=== PATIENT | female | born 1985 | race Caucasian/White ===

== ENCOUNTER → 2017-02-03 | Outpatient (CLI) | payer MEDICAID ==
--- NOTE | 2017-02-03 14:28 | Diagnostic Imaging Report ---
Right breast ultrasound. INDICATION: Lump. FINDINGS: At 7:30 o'clock position 2 cm from the nipple, there is a simple cyst seen measuring 4 x 2 x 4 mm. The previously seen complicated cyst adjacent to it has resolved. IMPRESSION: Only remaining tiny simple cyst is seen at 7:30 o'clock position with benign features. No suspicious abnormality. ACR BI-RADS Category 2: Benign findings. Result letter will be mailed to the patient. Note: At least 10% of breast cancer is not imaged by mammography. Dictated by: Dictated on workstation # [id number]
== END ==
LOC: RAD 10:23
PROVIDERS: ATTEND Nurse Practitioner
DX: N60.01 Solitary cyst of right breast (principal)

== ENCOUNTER 2018-07-08 10:03 | Outpatient (CLI) | payer MEDICAID ==
[~2018-07-08] VITALS: Ht 157.5 cm; Wt 46.7 kg
[2018-07-08 10:15] VITALS: BP 117/81
[2018-07-08] MEDS ORDERED: METO-333 PO (10:36)
[2018-07-08 10:48] LABS: BASOPHILS % (AUTO) 0 % (0-10); EOSINOPHILS # (AUTO) 0.1 10^3/uL (0.0-0.3); EOSINOPHILS % (AUTO) 2 % (0-10); HEMATOCRIT 42 % (35-52); HEMOGLOBIN 14.9 G/DL (11.5-16.0); LYMPHOCYTES # (AUTO) 1.8 X 10^3 (1.0-4.0); LYMPHOCYTES % (AUTO) 29 % (12-44); MEAN CORPUSCULAR HEMOGLOBIN 31 PG (25-34); MEAN CORPUSCULAR HGB CONC 35 G/DL (32-36); MEAN CORPUSCULAR VOLUME 88 FL (80-99); MEAN PLATELET VOLUME 10.9 FL (7.4-10.4); MONOCYTES # (AUTO) 0.5 X 10^3 (0.0-1.0); MONOCYTES % (AUTO) 8 % (0-12); NEUTROPHILS # (AUTO) 3.8 X 10^3 (1.8-7.8); NEUTROPHILS % (AUTO) 60 % (42-75); PLATELET COUNT 225 10^3/uL (130-400); RED BLOOD COUNT 4.81 10^6/uL (4.35-5.85); RED CELL DISTRIBUTION WIDTH 13.3 % (10.0-14.5); WHITE BLOOD COUNT 6.3 10^3/uL (4.3-11.0)
[2018-07-08] MEDS ORDERED: CLON2TAB PO (12:01)
[2018-07-08] MEDS ORDERED: TRAZ-189 PO (12:01)
[2018-07-08] MEDS ORDERED: CYCL10TA9 PO (12:01)
[2018-07-08] MEDS ORDERED: LUTE6TAB PO (12:01)
[2018-07-08] MEDS ORDERED: TOPI50TA13 PO (12:01)
[2018-07-08] MEDS ORDERED: CITA40TA11 PO (12:01)
[2018-07-08] MEDS ORDERED: TOPI100T11 PO (12:01)
[2018-07-08] MEDS ORDERED: NF-SOLIF5T PO (12:01)
== END 2018-07-08 10:35 | disposition home or self-care (01) ==
LOC: PREOP 10:03
PROVIDERS: ATTEND Obstetrics & Gynecology
DX: Z01.812 Encounter for preprocedural laboratory examination (principal); Z11.2 Encounter for screening for other bacterial diseases; N92.0 Excessive and frequent menstruation with regular cycle; D64.9 Anemia, unspecified
CPT/HCPCS: 36415; 85025; 86850; 86900; 86901; 87081

== ENCOUNTER 2018-07-12 11:00 | Day surgery (SDC) | payer MEDICAID ==
[~2018-07-12] VITALS: Ht 157.5 cm; Wt 46.7 kg
[~2018-07-12 11:00] MED LIST: CITA40TA11 PO; CLON2TAB PO; CYCL10TA9 PO; LUTE6TAB PO; METO-333 PO; NF-SOLIF5T PO; TOPI100T11 PO; TOPI50TA13 PO; TRAZ-189 PO
--- OUTSIDE RECORDS SUMMARY | 2018-07-12 11:07 | XMS REPORT ---
Author Author BETTE DUFF [facility] Address [address] [place] [address] Care Team Providers Care Color Maker Name Role Phone BETTE DUFF Unavailable PROBLEMS Type Condition ICD9-CM Code JUY86-OY Code Onset Dates Condition Status SNOMED Code Problem Generalized anxiety disorder F41.1 Active 57920441 Problem Depressive disorder, not elsewhere classified F32.9 Active 82647380 Assessment Generalized anxiety disorder F41.1 Jun, Active 55906583 ALLERGIES Unknown Allergies SOCIAL HISTORY No smoking Hx information available PLAN OF CARE VITAL SIGNS MEDICATIONS Unknown Medications RESULTS No Results PROCEDURES Procedure Date Ordered Related Diagnosis Body Site Psychotherapy, patient &/family, 45 minutes, established patient Jul 23, 2016 IMMUNIZATIONS No Known Immunizations
--- OUTSIDE RECORDS SUMMARY | 2018-07-12 11:07 | XMS REPORT ---
Author Author BETTE DUFF [facility] eClinicalWorks Address Unknown Phone Unavailable Care Team Providers Care Speech Language Specialist Name Role Phone BETTE DUFF Unavailable Allergies No Known Allergies Problems Problem Type Condition Code Onset Dates Condition Status Problem Depressive disorder, not elsewhere classified F32.9 Active Assessment Generalized anxiety disorder F41.1 Active Problem Generalized anxiety disorder F41.1 Active Assessment Depressive disorder, not elsewhere classified F32.9 Active Medications No Known Medications Procedures Procedure Coding System Code Date Psychotherapy, patient &/family, 45 minutes, established patient CPT-4 42919 Aug 13, 2016 Results No Known Results Summary Purpose eClinicalWorks Submission
--- OUTSIDE RECORDS SUMMARY | 2018-07-12 11:07 | XMS REPORT ---
Author Author VON DUGGAN Organization [facility] Address [address] [place] [address] Care Team Providers Care Gis Programmer Name Role Phone VON DUGGAN Unavailable PROBLEMS Type Condition ICD9-CM Code HIA33-DP Code Onset Dates Condition Status SNOMED Code Problem Abnormal bleeding in menstrual cycle N93.9 Active 69265412025248 Problem Generalized anxiety disorder F41.1 Active 86645088 Problem Acute vaginitis N76.0 Active 707197146 Problem Adenomyoma D36.9 Active 45391487 Problem Depressive disorder, not elsewhere classified F32.9 Active 96921569 Problem Streptococcal infection, unspecified site A49.1 Active 05070686 ALLERGIES No Information ENCOUNTERS Encounter Location Date Diagnosis [facility] [address] [id number] [place] [address] Dec [facility] [address] [id number] [place] [address] Dec [facility]ITALEdictiveMichelle [address] [id number] [place] [address] Dec Abnormal bleeding in menstrual cycle N93.9 [facility]ITALEdictiveMichelle [address] [address] Nov [facility]ITALReapplixTOBIAS Osman65100KS [place] [address] Nov Well woman exam with routine gynecological exam Z01.419 and Breast tenderness in female N64.4 [facility]ITALEdictiveMichelle [address] [address] Oct Abnormal bleeding in menstrual cycle N93.9 [facility]ITALEdictiveMichelle [address] [id number] [place] [address] Sep Abnormal bleeding in menstrual cycle N93.9 and Encounter for Depo- Provera contraception Z30.[address] [facility] [address] [id number] [place] [address] Jun Encounter for immunization Z23 [place] [id number] [place] [address] 19 Jul, 2016 Generalized anxiety disorder F41.1 and Depressive disorder, not elsewhere classified F32.9 [place] [address] [place] [address] 05 Jul, 2016 Generalized anxiety disorder F41.1 and Depressive disorder, not elsewhere classified F32.9 [place] [id number] [place] [address] 28 Jun, 2016 Generalized anxiety disorder F41.1 and Depressive disorder, not elsewhere classified F32.9 [place] [address] [place] [address] 20 Jun, 2016 Generalized anxiety disorder F41.1 and Depressive disorder, not elsewhere classified F32.9 [place] [address] [place] [address] 14 Jun, 2016 Generalized anxiety disorder F41.1 and Depressive disorder, not elsewhere classified F32.9 [place] [address] [place] [address] 06 Jun, 2016 Generalized anxiety disorder F41.1 and Depressive disorder, not elsewhere classified F32.9 IMMUNIZATIONS No Known Immunizations SOCIAL HISTORY Never Assessed REASON FOR VISIT PLAN OF CARE VITAL SIGNS MEDICATIONS Unknown Medications RESULTS No Results PROCEDURES No Known procedures INSTRUCTIONS MEDICATIONS ADMINISTERED No Known Medications MEDICAL (GENERAL) HISTORY Type Description Date Medical History Severe Chronic Migraines Medical History Depression Medical History anxiety Medical History mitral valve prolapse Medical History TMJ Surgical History appendectomy 04/2013 Surgical History tubal ligation 02/2013 Hospitalization History childbirth 2012
--- OUTSIDE RECORDS SUMMARY | 2018-07-12 11:07 | XMS REPORT ---
Author Author VON DUGGAN [facility] Address [address] [place] [address] Care Team Providers Care Stoker Installation Mechanic Name Role Phone VON DUGGAN Unavailable PROBLEMS Type Condition ICD9-CM Code DXI69-CS Code Onset Dates Condition Status SNOMED Code Problem Abnormal bleeding in menstrual cycle N93.9 Active 63903231013909 Problem Generalized anxiety disorder F41.1 Active 62440461 Problem Acute vaginitis N76.0 Active 153219673 Problem Adenomyoma D36.9 Active 37159558 Problem Depressive disorder, not elsewhere classified F32.9 Active 50679507 Problem Streptococcal infection, unspecified site A49.1 Active 13995643 ALLERGIES No Information ENCOUNTERS Encounter Location Date Diagnosis [facility] [address] [id number] [place] [address] Dec [facility] [address] [id number] [place] [address] Dec [facility]pl[facility] [address] [id number] [place] [address] Dec Abnormal bleeding in menstrual cycle N93.9 [facility]pl[facility] [address] [address] Nov [facility]TO[facility] [address] [place] [address] Nov Well woman exam with routine gynecological exam Z01.419 and Breast tenderness in female N64.4 [facility]ALSplotherMichelle [address] [address] Oct Abnormal bleeding in menstrual cycle N93.9 [facility]plother[facility] [address] [id number] [place] [address] Sep Abnormal bleeding in menstrual cycle N93.9 and Encounter for Depo- Provera contraception Z30.42 [facility] [address] [id number] [place] [address] Jun Encounter for immunization Z23 [place] [address] [place] [address] 19 Jul, 2016 Generalized anxiety disorder F41.1 and Depressive disorder, not elsewhere classified F32.9 [place] [address] [place] [address] 05 Jul, 2016 Generalized anxiety disorder F41.1 and Depressive disorder, not elsewhere classified F32.9 [place] [address] [place] [address] 28 Jun, 2016 Generalized anxiety disorder F41.1 and Depressive disorder, not elsewhere classified F32.9 [place] [address]005[address], [place] [address] 20 Jun, 2016 Generalized anxiety disorder F41.1 and Depressive disorder, not elsewhere classified F32.9 [place] [address]100[place], [place] [address] 14 Jun, 2016 Generalized anxiety disorder F41.1 and Depressive disorder, not elsewhere classified F32.9 [place] [address], [place] [address] 06 Jun, 2016 Generalized anxiety disorder F41.1 and Depressive disorder, not elsewhere classified F32.9 IMMUNIZATIONS No Known Immunizations SOCIAL HISTORY Never Assessed REASON FOR VISIT Requests return call PLAN OF CARE VITAL SIGNS MEDICATIONS Medication Instructions Dosage Frequency Start Date End Date Duration Status Diflucan 150 MG Orally may take now and repeat in 3 days if needed 1 tablet Dec, 2 days Active RESULTS No Results PROCEDURES No Known procedures INSTRUCTIONS MEDICATIONS ADMINISTERED No Known Medications MEDICAL (GENERAL) HISTORY Type Description Date Medical History Severe Chronic Migraines Medical History Depression Medical History anxiety Medical History mitral valve prolapse Medical History TMJ Surgical History appendectomy 04/2013 Surgical History tubal ligation 02/2013 Hospitalization History childbirth 2012
--- OUTSIDE RECORDS SUMMARY | 2018-07-12 11:07 | XMS REPORT ---
Author Author VON DUGGAN Organization [facility] Address [address] [address] Care Team Providers Care Printing Shop Supervisor Name Role Phone VON DUGGAN Unavailable PROBLEMS Type Condition ICD9-CM Code DBZ80-ZZ Code Onset Dates Condition Status SNOMED Code Problem Abnormal bleeding in menstrual cycle N93.9 Active 96900629216568 Problem Generalized anxiety disorder F41.1 Active 32201463 Problem Acute vaginitis N76.0 Active 993013551 Problem Adenomyoma D36.9 Active 61922738 Problem Depressive disorder, not elsewhere classified F32.9 Active 47766654 Problem Streptococcal infection, unspecified site A49.1 Active 77587079 ALLERGIES No Information ENCOUNTERS Encounter Location Date Diagnosis [facility] [address] [id number] [place] [address] Dec [facility]X1 TechnologiesTOBIAS [address] [id number] [place] [address] Dec [facility]ITALGoodmail SystemsMichelle [address] [id number] [place] [address] Dec Abnormal bleeding in menstrual cycle N93.9 [facility]ITALGoodmail SystemsMichelle [address] [address] Nov [facility]X1 TechnologiesTOBIAS Osman65100[address] [place] [address] Nov Well woman exam with routine gynecological exam Z01.419 and Breast tenderness in female N64.4 [facility]ITALGoodmail SystemsMichelle [address] [address] Oct Abnormal bleeding in menstrual cycle N93.9 [facility]ITALGoodmail SystemsMichelle [address] COMMER[address]av[address] [id number] [place] [address] Sep Abnormal bleeding in menstrual cycle N93.9 and Encounter for Depo- Provera contraception Z30.42 [facility] [address] [id number] [place] [address] Jun Encounter for immunization Z23 [place] [id number] [place] [address] 19 Jul, 2016 Generalized anxiety disorder F41.1 and Depressive disorder, not elsewhere classified F32.9 [place] [address] [place] [address]40- 2672 05 Jul, 2016 Generalized anxiety disorder F41.1 and Depressive disorder, not elsewhere classified F32.9 [place] [id number] [place] [address] 67926- 9065 28 Jun, 2016 Generalized anxiety disorder F41.1 and Depressive disorder, not elsewhere classified F32.9 [place] [address] [place] [address] 17272- 3583 20 Jun, 2016 Generalized anxiety disorder F41.1 and Depressive disorder, not elsewhere classified F32.9 [place] [address] [place] [address] 66463- 4175 14 Jun, 2016 Generalized anxiety disorder F41.1 and Depressive disorder, not elsewhere classified F32.9 [place] [address] [place] [address] 51880- 8402 06 Jun, 2016 Generalized anxiety disorder F41.1 [...]
--- OUTSIDE RECORDS SUMMARY | 2018-07-12 11:07 | XMS REPORT ---
Author Author BETTE DUFF [facility] Address [address] [place] [address] Care Team Providers Care Field Identification Specialist Name Role Phone BETTE DUFF Unavailable PROBLEMS Type Condition ICD9-CM Code CUA02-UD Code Onset Dates Condition Status SNOMED Code Problem Generalized anxiety disorder F41.1 Active 05954206 Problem Depressive disorder, not elsewhere classified F32.9 Active 75892243 Assessment Generalized anxiety disorder F41.1 Jun, Active 08556853 ALLERGIES Unknown Allergies SOCIAL HISTORY No smoking Hx information available PLAN OF CARE VITAL SIGNS MEDICATIONS Unknown Medications RESULTS No Results PROCEDURES Procedure Date Ordered Related Diagnosis Body Site Psych diagnostic evaluation, new patient Jul 01, 2016 IMMUNIZATIONS No Known Immunizations
--- OUTSIDE RECORDS SUMMARY | 2018-07-12 11:07 | XMS REPORT ---
Author Author KEITH LUNA [facility] Address [address] [place] [address] Care Team Providers Care Fishing Lure Assembler Name Role Phone KEITH LUNA Unavailable PROBLEMS Type Condition ICD9-CM Code URU58-FQ Code Onset Dates Condition Status SNOMED Code Problem Abnormal bleeding in menstrual cycle N93.9 Active 44935434762529 Problem Generalized anxiety disorder F41.1 Active 05587832 Problem Acute vaginitis N76.0 Active 629613970 Problem Adenomyoma D36.9 Active 37558433 Problem Depressive disorder, not elsewhere classified F32.9 Active 93255157 Problem Streptococcal infection, unspecified site A49.1 Active 02208671 ALLERGIES No Information ENCOUNTERS Encounter Location Date Diagnosis [facility] [address] [id number] [place] [address] Dec [facility] [address] [id number] [place] [address] Dec [facility]ENTERPlixTOBIAS [address] [id number] [place] [address] Dec Abnormal bleeding in menstrual cycle N93.9 [facility]ENTERPlixTOBIAS [address]100[place] [address] Nov [facility] [address] [id number] [place] [address] Nov Well woman exam with routine gynecological exam Z01.419 and Breast tenderness in female N64.4 [facility]ENTERPlixTOBIAS [address] [address] Oct Abnormal bleeding in menstrual cycle N93.9 [facility]ENTERPlixTOBIAS [address] [id number] [place] [address] Sep Abnormal bleeding in menstrual cycle N93.9 and Encounter for Depo- Provera contraception Z30.42 [facility] [address] [id number] [place] [address] 22 Jun Encounter for immunization Z23 [place] [address]005[address] [address] 19 Jul, 2016 Generalized anxiety disorder F41.1 and Depressive disorder, not elsewhere classified F32.9 [place] [address]100[place] [address] 05 Jul, 2016 Generalized anxiety disorder F41.1 and Depressive disorder, not elsewhere classified F32.9 [place] [address] [address] 28 Jun, 2016 Generalized anxiety disorder F41.1 and Depressive disorder, not elsewhere classified F32.9 [place] [address]005[address] [address] 20 Jun, 2016 Generalized anxiety disorder F41.1 and Depressive disorder, not elsewhere classified F32.9 [place] [address]005[address] [address] 14 Jun, 2016 Generalized anxiety disorder F41.1 and Depressive disorder, not elsewhere classified F32.9 [place] [address] [address] 06 Jun, 2016 Generalized anxiety disorder F41.1 and Depressive disorder, not elsewhere classified F32.9 IMMUNIZATIONS Vaccine Route Administration Date Status FLUARIX QUAD (3 AND UP) 2017 IM Intramuscular Jul 17, 2017 Administered SOCIAL HISTORY Never Assessed REASON FOR VISIT Flu shot PLAN OF CARE VITAL SIGNS MEDICATIONS Unknown Medications RESULTS No Results PROCEDURES Procedure Date Ordered Result Body Site FLUARIX QUAD (3 & UP)-GSK-2015 Jul 17, 2017 SINGLE IMMUNIZATION ADMIN Jul 17, 2017 INSTRUCTIONS MEDICATIONS ADMINISTERED No Known Medications MEDICAL (GENERAL) HISTORY Type Description Date Medical History Severe Chronic Migraines Medical History Depression Medical History anxiety Medical History mitral valve prolapse Medical History TMJ Surgical History appendectomy 04/2013 Surgical History tubal ligation 02/2013 Hospitalization History childbirth 2012
--- OUTSIDE RECORDS SUMMARY | 2018-07-12 11:07 | XMS REPORT ---
Author Author BETTE DUFF [facility] Address [address] [place] [address] Care Team Providers Care Movie Shot Camera Operator Name Role Phone BETTE DUFF Unavailable PROBLEMS Type Condition ICD9-CM Code ISX16-DP Code Onset Dates Condition Status SNOMED Code Problem Generalized anxiety disorder F41.1 Active 18177982 Problem Depressive disorder, not elsewhere classified F32.9 Active 15383340 Assessment Generalized anxiety disorder F41.1 Jun, Active 33286675 ALLERGIES Unknown Allergies SOCIAL HISTORY No smoking Hx information available PLAN OF CARE VITAL SIGNS MEDICATIONS Unknown Medications RESULTS No Results PROCEDURES Procedure Date Ordered Related Diagnosis Body Site Psychotherapy, patient &/family, 30 minutes, established patient Jul 15, 2016 IMMUNIZATIONS No Known Immunizations
--- OUTSIDE RECORDS SUMMARY | 2018-07-12 11:07 | XMS REPORT ---
Author Author VON DUGGAN Organization [facility] NEAL Address [address] [place] [address] Care Team Providers Care Housekeeper/Laundry Assistant Name Role Phone VON DUGGAN Unavailable PROBLEMS Type Condition ICD9-CM Code HLJ50-VL Code Onset Dates Condition Status SNOMED Code Problem Abnormal bleeding in menstrual cycle N93.9 Active 90883460595922 Problem Generalized anxiety disorder F41.1 Active 74987076 Problem Acute vaginitis N76.0 Active 976432870 Problem Adenomyoma D36.9 Active 41286339 Problem Depressive disorder, not elsewhere classified F32.9 Active 41223507 Problem Streptococcal infection, unspecified site A49.1 Active 29751202 ALLERGIES Substance Reaction Event Type Date Status Atenolol rash Drug Allergy Oct, Active ENCOUNTERS Encounter Location Date Diagnosis [facility] [address] [id number] [place] [address] Dec [facility] [address] [id number] [place] [address] Dec [facility] [address] [id number] [place] [address] Dec Abnormal bleeding in menstrual cycle N93.9 [facility] [address] [id number] [place] [address] Nov [facility] [address] [id number] [place] [address] Nov Well woman exam with routine gynecological exam Z01.419 and Breast tenderness in female N64.4 [facility] [address] [id number] [place] [address] Oct Abnormal bleeding in menstrual cycle N93.9 [facility] ([facility] [address] [id number] [place] [address] Sep Abnormal bleeding in menstrual cycle N93.9 and Encounter for Depo- Provera contraception Z30.42 [facility] [id number] [place] [address] Jun Encounter for immunization Z23 [facility] [address]005[address]100[place], [place] [address] 19 Jul, 2016 Generalized anxiety disorder F41.1 and Depressive disorder, not elsewhere classified F32.9 [place] [address] [place] [address] 05 Jul, 2016 Generalized anxiety disorder F41.1 and Depressive disorder, not elsewhere classified F32.9 [place] [address] [place] [address] [place] [address] 28 Jun, 2016 Generalized anxiety disorder F41.1 and Depressive disorder, not elsewhere classified F32.9 [place] [address], [place] [address] 20 Jun, 2016 Generalized anxiety disorder F41.1 and Depressive disorder, not elsewhere classified F32.9 [place] [address], [place] [address] 14 Jun, 2016 Generalized anxiety disorder F41.1 and Depressive disorder, not elsewhere classified F32.9 [place] [address], [place] [address] 06 Jun, 2016 Generalized anxiety disorder F41.1 and Depressive disorder, not elsewhere classified F32.9 IMMUNIZATIONS No Known Immunizations SOCIAL HISTORY Never Assessed REASON FOR VISIT control kjizyw-[id number] up on depo got on 10/15 just stopped bleeding yesterday. Marc carroll PLAN OF CARE Activity Details Follow Up prn Reason:WWE VITAL SIGNS Height 5'2" in 2017-11-19 Weight 96.8 lbs 2017-11-19 Temperature 98.5 degrees Fahrenheit 2017-11-19 Heart Rate 78 bpm 2017-11-19 Respiratory Rate 18 2017-11-19 BMI 17.70 kg/m2 2017-11-19 Blood pressure systolic 110 mmHg 2017-11-19 Blood pressure diastolic 70 mmHg 2017-11-19 MEDICATIONS Medication Instructions Dosage Frequency Start Date End Date Duration Status Celexa 40 mg Orally Once a day 1 tablet 24h Active Lorazepam 1 MG Orally 4 times a day 1 tablet 6h Active Topamax 50 MG Orally Twice a day 1 tablet 12h Active Imitrex 100 MG Orally Twice a day 1 tablet as needed 12h Active Topamax 100 MG Orally Twice a day 1 tablet 12h Active Depo-Provera 150 MG/ML 1 ml Active Metoprolol Tartrate 25 MG Orally Twice a day 1 tablet with food 12h Active Cyclobenzaprine HCl 10 mg Orally at hs 1 tablet as needed Active Zofran ODT 4 MG Orally every 8 hrs 1 tablet on the tongue and allow to dissolve 8h Active RESULTS No Results PROCEDURES No Known procedures INSTRUCTIONS MEDICATIONS ADMINISTERED No Known Medications MEDICAL (GENERAL) HISTORY Type Description Date Medical History Severe Chronic Migraines Medical History Depression Medical History anxiety Medical History mitral valve prolapse Medical History TMJ Surgical History appendectomy 04/2013 Surgical History tubal ligation 02/2013 Hospitalization History childbirth 2012
--- OUTSIDE RECORDS SUMMARY | 2018-07-12 11:07 | XMS REPORT ---
Author Author BETTE DUFF [facility] eClinicalWorks Address Unknown Phone Unavailable Care Team Providers Care Spinning Room Worker Name Role Phone BETTE DUFF Unavailable Allergies [...] patient &/family, 45 minutes, established patient CPT-4 48267 Jul 30, 2016 Results No Known Results Summary Purpose eClinicalWorks Submission
--- OUTSIDE RECORDS SUMMARY | 2018-07-12 11:08 | XMS REPORT ---
Author Author VON DUGGAN Organization [facility] Address [address] [place] [address] Care Team Providers Care Concrete Buildings Assembler Name Role Phone VON DUGGAN Unavailable PROBLEMS Type Condition ICD9-CM Code [id number] Code Onset Dates Condition Status SNOMED Code Problem Abnormal bleeding in menstrual cycle N93.9 Active [id number] Problem Generalized anxiety disorder F41.1 Active 68458115 Problem Acute vaginitis N76.0 Active 038446107 Problem Adenomyoma D36.9 Active 96837389 Problem Depressive disorder, not elsewhere classified F32.9 Active 46938298 Problem Streptococcal infection, unspecified site A49.1 Active 70891231 ALLERGIES Substance Reaction Event Type Date Status Atenolol rash Drug Allergy Sep, Active ENCOUNTERS Encounter Location Date Diagnosis [facility] [address] [id number] [place] [address] [facility] [address] [id number] [place] [address] Dec [facility] [address] [id number] [place] [address] Dec Abnormal bleeding in menstrual cycle N93.9 [facility] [address] [id number] [place] [address] Nov [facility] [address] [id number] [place] [address] Nov Well woman exam with routine gynecological exam Z01.419 and Breast tenderness in female N64.4 [facility] [address] [id number] [place] [address] Oct Abnormal bleeding in menstrual cycle N93.9 [facility] [address] [id number] [place] [address] Sep Abnormal bleeding in menstrual cycle N93.9 and Encounter for Depo- Provera contraception Z30.[address] [facility] [address] [id number] [place] [address] Jun Encounter for immunization Z23 [facility] [address] [address] 19 Jul, 2016 Generalized anxiety disorder F41.1 and Depressive disorder, not elsewhere classified F32.9 [place] [address] [place] [address] 05 Jul, 2016 Generalized anxiety disorder F41.1 and Depressive disorder, not elsewhere classified F32.9 [place] [address] [place] [id number] [place] [address] 28 Jun, 2016 Generalized anxiety disorder F41.1 and Depressive disorder, not elsewhere classified F32.9 [place] [address], [place] [address] 20 Jun, 2016 Generalized anxiety disorder F41.1 and Depressive disorder, not elsewhere classified F32.9 [place] [address], [place] [address] 14 Jun, 2016 Generalized anxiety disorder F41.1 and Depressive disorder, not elsewhere classified F32.9 [place] [address] [address] 06 Jun, 2016 Generalized anxiety disorder F41.1 and Depressive disorder, not elsewhere classified F32.9 IMMUNIZATIONS Vaccine Route Administration Date Status DEPO PROVERA (150 MG/ML) IM Intramuscular Oct 15, 2017 Administered SOCIAL HISTORY Never Assessed REASON FOR VISIT control consult. abnormal periods. stephanie RN PLAN OF CARE Activity Details Follow Up 4 Weeks Reason:BC F/U VITAL SIGNS Height 5'2" in 2017-10-15 Weight 96.1 lbs 2017-10-15 Temperature 97.2 degrees Fahrenheit 2017-10-15 Heart Rate 74 bpm 2017-10-15 Respiratory Rate 18 2017-10-15 BMI 17.58 kg/m2 2017-10-15 Blood pressure systolic 110 mmHg 2017-10-15 Blood pressure diastolic 75 mmHg 2017-10-15 MEDICATIONS Medication Instructions Dosage Frequency Start Date End Date Duration Status Lorazepam 1 MG Orally 4 times a day 1 tablet 6h Active Celexa 40 mg Orally Once a day 1 tablet 24h Active Topamax 50 MG Orally Twice a day 1 tablet 12h Active Topamax 100 MG Orally Twice a day 1 tablet 12h Active Metoprolol Tartrate 25 MG Orally Twice a day 1 tablet with food 12h Active Imitrex 100 MG Orally Twice a day 1 tablet as needed 12h Active Zofran ODT 4 MG Orally every 8 hrs 1 tablet on the tongue and allow to dissolve 8h Active RESULTS No Results PROCEDURES Procedure Date Ordered Result Body Site THER/PROPH/DIAG INJ, SC/IM Oct 15, 2017 COMPREHEN METABOLIC PANEL Oct 15, 2017 URINE TEST Oct 15, 2017 VENIPUNCT, ROUTINE* Oct 15, 2017 DEPO PROVERA (150 MG/ML) Oct 15, 2017 ASSAY OF PROGESTERONE Oct 15, 2017 ASSAY OF ESTRADIOL Oct 15, 2017 GONADOTROPIN (FSH) Oct 15, 2017 GONADOTROPIN (LH) Oct 15, 2017 INSTRUCTIONS MEDICATIONS ADMINISTERED No Known Medications MEDICAL (GENERAL) HISTORY Type Description Date Medical History Severe Chronic Migraines Medical History Depression Medical History anxiety Medical History mitral valve prolapse Medical History TMJ Surgical History appendectomy 04/2013 Surgical History tubal ligation 02/2013 Hospitalization History childbirth 2012
[2018-07-12] MEDS: LACTATED RINGERS 1,000 ML IV PRN ×2 (11:15→13:44)
[2018-07-12] MEDS ORDERED: ceFAZolin 1 GM/NS 50 ML IVPB IV ONE ×2 (11:15)
[2018-07-12] MEDS ORDERED: ceFAZolin INJECTION 1,000 MG in NS (IVPB) 50 ML IV ONE (11:15)
[2018-07-12] MEDS ORDERED: ONDANSETRON 4 MG/2 ML (SDV) Z0FRAN ONE (12:02)
[2018-07-12] MEDS ORDERED: ROCURONIUM 10 MG/ML 5 ML SYRINGE IV ONE (12:02)
[2018-07-12] MEDS ORDERED: fentaNYL INJECTION 100 MCG/2 ML AMP ONE (12:02)
[2018-07-12] MEDS ORDERED: MIDAZOLAM 2 MG/2 ML (VERSED) VIAL ONE (12:02)
[2018-07-12] MEDS ORDERED: LIDOCAINE PF 2% 2 ML (XYLOCAINE) VIAL ONE ×2 (12:02→12:03)
[2018-07-12] MEDS ORDERED: proPOfol 200 MG/20 ML (DIPRIVAN) VIAL IV ONE (12:02)
[2018-07-12] MEDS ORDERED: SEVOFLURANE (ULTANE) 15 ML INHAL SOLN ONE ×6 (12:03→14:05)
[2018-07-12] MEDS ORDERED: BUP/EPI 0.5% 1:200,000 (SENSORCAINE) 30 ML VIAL ONE (12:13)
--- NOTE | 2018-07-12 12:38 | Progress Note-Pre Operative ---
Pre-Operative Progress Note H&P Reviewed The H&P was reviewed, patient examined and no changes noted. Date Seen by Provider: Jul 12, 2018 Time Seen by Provider: 12:37 Date H&P Reviewed: Jul 12, 2018 Time H&P Reviewed: 12:37 Pre-Operative Diagnosis: Dysfunctional uterine bleeding/menorrhagia/uterine prolapse CHASITY WEBSTER MD Jul 12, 2018 12:38 pm
--- NOTE | 2018-07-12 12:38 | Progress Note-Post Operative ---
Post-Operative Progess Note Surgeon (s)/Opthalmic Tech (s) Surgeon CHASITY WEBSTER MD Opthalmic Tech: Eliza Hill Pre-Operative Diagnosis Dysfunctional uterine bleeding/menorrhagia/uterine prolapse Post-Operative Diagnosis Same with endometriosis and with pathology pending Procedure & Operative Findings Date of Procedure 07/12/18 Procedure Performed/Findings Total laparoscopic hysterectomy with bilateral salpingectomy and left oophorectomy, destruction of endometriosis Anesthesia Type GETA Estimated Blood Loss Estimated blood loss (mL): Minimal Specimens/Packing Specimens Removed Uterus fallopian tubes left ovary Packing: None CHASITY WEBSTER MD Jul 12, 2018 12:38
[2018-07-12] MEDS ORDERED: OXYC1TAB87 PO (12:41)
[2018-07-12] MEDS ORDERED: DOCU100C37 PO (12:41)
[2018-07-12] MEDS ORDERED: IBUP-1780 PO (12:41)
--- NOTE | 2018-07-12 12:43 | Discharge Instructions ---
Discharge Instructions Discharge Medications New, Converted or Re-Newed RX: RX on Chart Patient Instructions Patient Instructions: As directed Return to The Hospital For: As directed Activity & Diet Discharge Diet: No Restrictions Activity as Tolerated: No Orders-Post D/C & Referrals Follow Up Appt: Return to clinic on Thursday, July 16, 2018 at 930 a.m. for staple removal Call to make follow up appt. for patient in 4 weeks. Activity: Rest for 24 hours, than as tolerated. Wound Care: May remove Band-Aid tomorrow. Replace as desired. Keep incisions clean and dry. Wash daily with soap and water. Please call in RX to patient pharmacy. Diet: As tolerated-Clear Liquids only if nauseated. Tomorrow, may shower or tub bathe as desired. No driving for 24 hours, no alcoholic beverages for 24 hours, and nothing per vagina (no tampons, douching, or intercourse) for 8 weeks. Patient to return to the clinic as soon as possible for: Temperature greater than 101F, Severe Pain, Foul discharge from incision or vagina, Excessive Bleeding (more than a period). CHASITY WEBSETR MD Jul 12, 2018 12:43 pm
[2018-07-12] MEDS ORDERED: PROMETHAZINE INJ 25 MG/ML (PHENERGAN) AMP IM PRN (12:45)
[2018-07-12] MEDS ORDERED: MEPERIDINE (DEMEROL) INJ 100 MG/ML IM PRN (12:45)
[2018-07-12] MEDS ORDERED: ONDANSETRON 4 MG/2 ML (SDV) Z0FRAN IVP PRN ×2 (12:45→14:30)
[2018-07-12] MEDS: KETOROLAC 30 MG/ML VIAL IVP SCH ×2 (14:00→20:14)
[2018-07-12] MEDS ORDERED: DEXAMETHASONE 10 MG/ML (DECADRON) 1 ML VIAL ONE (14:05)
[2018-07-12] MEDS ORDERED: MEPERIDINE (DEMEROL) INJ 50 MG/ML IVP ONE (14:30)
[2018-07-12] MEDS ORDERED: PROMETHAZINE INJ 25 MG/ML (PHENERGAN) AMP IVP ONE (14:30)
[2018-07-12] MEDS ORDERED: HYDROmorphone 2 MG/ML VIAL (DILAUDID) IV ONE (14:30)
[2018-07-12] MEDS ORDERED: morphine INJ 10 MG/ML 1ML (SYR OR VIAL) IVP ONE (14:30)
[2018-07-12 15:20] VITALS: BP 116/72
--- NOTE | 2018-07-12 15:40 | OPERATIVE REPORT ---
DATE OF SERVICE: 07/12/2018 PREOPERATIVE DIAGNOSES: Dysfunctional uterine bleeding, menorrhagia and uterine prolapse. POSTOPERATIVE DIAGNOSES: Dysfunctional uterine bleeding, menorrhagia and uterine prolapse with endometriosis. OPERATIVE PROCEDURES: Total laparoscopic hysterectomy with bilateral salpingectomy, left oophorectomy and destruction of endometriosis implants. Postop pathology is pending. OPERATIVE DESCRIPTION: With the patient in the supine position under satisfactory general anesthesia, she was prepped and draped in the usual fashion for abdominal and vaginal surgery. The urinary bladder was drained via Michelle catheter to dependent drainage. Weighted speculum was placed in the posterior fornix of vagina, cervix exposed and grasped anteriorly with a single tooth tenaculum. Uterus was sounded to 11 cm with the uterine sound. The cervix was then serially dilated with Charo dilators to accommodate a Cynthia II manipulator, which was placed using a 6 mm x 8 cm uterine probe and a 30 mm colpotomy ring. Sutures of #1 Vicryl were placed at 3 and 9 o'clock position of the cervix to affix the cervix to the manipulator. The speculum and tenaculum were removed. The patient was brought in low dorsal lithotomy position. A 12 mm incision was made 4 cm superior to the umbilicus. Veress needle was placed through that incision, correct placement confirmed with a water drop test and the abdomen was insufflated with 2.4 liters of carbon dioxide. The Veress needle was removed and a 12 mm Optiview laparoscopic port was placed. The abdominal wall was transilluminated and 8 mm ports were placed through incisions of those sizes 8 cm lateral to the umbilicus on the right and the left near the level of the umbilicus, but in a location to avoid disturbing her numerous tattoos. All incision sites have been infiltrated with 0.25% Marcaine with epinephrine prior to incision. The patient was now placed in Trendelenburg allowing the bowel to spill out of the pelvis. The da Ashanti column was advanced on the patient and docked and then operative instruments were placed in the right and left lateral ports and I retired to the da Ashanti console for the hysterectomy. At the console using a vessel sealer on the right and a bipolar fenestrated grasper on the left, the pelvis was first examined. There were some adhesions of the sigmoid to the left pelvic brim. These were somewhat filmy, were taken down very easily with cautery and with sharp dissection exposing the IP ligament nicely. There were endometriosis implants in both ovarian fossae. There was evidence of tubal sterilization bilaterally. The appendix was surgically absent. The uterus was somewhat mottled in appearance consistent with adenomyosis. Procedure was initiated by grasping the distal portion of the right fallopian tube and it by dividing the mesosalpinx, allowing that to be from the ovary. That dissection was carried over to the uteroovarian pedicle. The uteroovarian pedicle was then clamped, cauterized and divided also using the vessel sealer. The broad ligament and cardinal ligament were treated in the same manner. On the left, tube and ovary were grasped and elevated. The mesovarium was clamped, cauterized and divided, that was continued stepwise across to the round ligament and then across the broad ligaments inside the uterus and down on to the cardinal ligaments, also with the vessel sealer. The anterior and posterior lower uterine segment was now exposed using a monopolar shear and placed in the vessel sealer. The peritoneum was opened. The bladder was carefully dissected down off the lower uterine segment and then colpotomy incision was made at the 12 o'clock position onto the colpotomy ring. That incision was continued circumferentially until the entire colpotomy ring was exposed. Then, the uterus with the tubes and the left ovary still attached was extracted through the vagina. The vaginal cuff was closed with 2 sutures using V-Loc barbed suture starting first from the right side and supporting the ovary to the pedicle of the round ligament by triplication of that pedicle and then continuing that suture down to the right angle ensuring inclusion of the uterine vessel pedicles to ensure hemostasis and then continue across the vaginal cuff to the midportion of the vaginal cuff where the suture was brought back bringing the peritoneum down on the vaginal cuff. That suture was tied and then a second suture was started from the left closing the vaginal cuff and ligating the pedicles of the uterine vessels on the left. The vaginal cuff was closed completely in a running locked suture and then the bladder peritoneum was finished, it was approximated with that suture as well. Endometriosis implants in the cul-de-sac had been destroyed with monopolar shear before removing it in place with a needle pizza delivery driver. With the pelvis examined and completely hemostatic, the vaginal cuff reapproximated. The right ovary supported up on the side of the pelvis. No bleeding, no abnormal pathology. The procedure was terminated. The operative instruments were removed under direct vision as were the ports. The skin incision was closed with carmen. The fascia at the supraumbilical incision was closed with [id number] suture of 2-0 Vicryl. The speculum was replaced in the vagina. The vaginal cuff was examined and was found completely hemostatic and completely reapproximated. The Michelle catheter was left to dependent drains. It was draining clear yellow urine. Sponge and needle counts were correct on completion of the procedure. Estimated blood loss was minimal. The patient tolerated the procedure well and was uneventfully awakened from her general anesthesia and transferred to the recovery room in stable condition. PRIMARY CARE PROVIDER: Sonya Wilkerson APRN Job ID: [id number] DocumentID: [id number] Dictated Date: 07/12/2018 14:13:20 Oil Prospecting Observer Date: 07/12/2018 15:40:12 Dictated By: CHASITY WEBSTER MD
[2018-07-12] MEDS ORDERED: oxyCODONE/APAP 10/325MG (PERCOCET 10) TABLET PO ONE (15:47)
[2018-07-12] MEDS: D5 LR IV SOLUTION 1,000 ML IV SCH ×2 (20:13→20:14)
[2018-07-12 20:14] VITALS: BP 102/65
[2018-07-13 00:28] VITALS: BP 101/61
[2018-07-13] MEDS: oxyCODONE/APAP 5/325MG (PERCOCET 5) TABLET PO PRN ×2 (00:28→09:40)
[2018-07-13 03:56] VITALS: BP 90/65
[2018-07-13] MEDS: KETOROLAC 30 MG/ML VIAL IVP SCH (03:56)
--- NOTE | 2018-07-13 06:59 | Anesthesia-General Post-Op ---
General Patient Condition Mental Status/LOC: Same as Preop Cardiovascular: Satisfactory Nausea/Vomiting: Absent Respiratory: Satisfactory Pain: Controlled Complications: Absent Post Op Complications Complications None Follow Up Care/Instructions Patient Instructions None needed. Anesthesia/Patient Condition Patient Condition Patient is doing well, no complaints, stable vital signs, no apparent adverse anesthesia problems. No complications reported per nursing. D/C home per [facility] Criteria: ANGELIKA Rodriguez CRNA Jul 13, 2018 06:59
--- NOTE | 2018-07-13 07:22 | Progress Note-Standard ---
Standard Progress Note Progress Notes/Assess & Plan Date Seen by Provider: Jul 13, 2018 Time Seen by Provider: 07:21 Progress/Assessment & Plan This patient is without complaint. She is ambulating, tolerating oral intake well has good pain control. She denies chest pain, denies shortness of breath, denies nausea vomiting, denies headache. Patient has not voided yet junk catheter was removed. Vital Signs 07/13/18 03:56 Temp 97.7 Pulse 80 Resp 16 B/P (MAP) 90/65 (73) Pulse Ox 99 O2 Delivery Room Air Vital signs are stable. Patient is afebrile. The abdomen is benign. Extreme show clubbing or cyanosis. There is no Homans sign. Assessment and plan postoperative day number 1 doing well. Plan is for discharge home with follow-up in clinic Final Diagnosis Dysfunctional uterine bleeding/menorrhagia CHASITY WEBSTER MD Jul 13, 2018 7:22 am
[2018-07-13] MEDS ORDERED: DOCUSATE SODIUM 100 MG (COLACE) CAP PO SCH (09:00)
[2018-07-13 09:40] VITALS: BP 103/64
[2018-07-13] MEDS ORDERED: IBUPROFEN 800 MG (MOTRIN) TAB PO SCH (12:00)
== END 2018-07-13 10:45 | disposition home or self-care (01) ==
LOC: SDC 11:00 → WS 13:57 → SDC 07-13 10:45
PROVIDERS: ATTEND Obstetrics & Gynecology
DX: D25.1 Intramural leiomyoma of uterus (principal); N80.1 Endometriosis of ovary; N83.202 Unspecified ovarian cyst, left side; N83.8 Other noninflammatory disorders of ovary, fallopian tube and broad ligament; N81.4 Uterovaginal prolapse, unspecified; F32.9 Major depressive disorder, single episode, unspecified; F41.9 Anxiety disorder, unspecified; K21.9 Gastro-esophageal reflux disease without esophagitis; G62.9 Polyneuropathy, unspecified; I34.1 Nonrheumatic mitral (valve) prolapse; F17.210 Nicotine dependence, cigarettes, uncomplicated; Z79.899 Other long term (current) drug therapy
CPT/HCPCS: 36415; 84703; 86850; 86900; 86901; 88307; 94664

== ENCOUNTER 2021-11-03 14:31 | Emergency (ER) | payer SELFPAY ==
[~2021-11-03] VITALS: Ht 158 cm; Wt 63.5 kg
[~2021-11-03 14:31] MED LIST changes: -CITA40TA11 PO; +CITA40TA13 PO; +CYCL10TA25 PO; -CYCL10TA9 PO; +DOCU100C37 PO; +IBUP-1780 PO; +OXYC1TAB87 PO; -TRAZ-189 PO; +TRZ50T PO
--- NOTE | 2021-11-03 14:53 | ED Integumentary General ---
General Stated Complaint: BOILS Source: patient Exam Limitations: no limitations History of Present Illness Date Seen by Provider: Nov 03, 2021 Time Seen by Provider: 14:51 Initial Comments To ER with reports of abscess to the right side of the groin. Present for a few days. Was given a prescription for cephalexin 500 4 times daily and Valtrex. No systemic symptoms such as fevers or chills. She has a lot of localized tenderness. Timing/Duration: constant Severity: moderate Possible Cause: no cause identified Associated Symptoms: denies symptoms Allergies and Home Medications Allergies Coded Allergies: atenolol (Verified Allergy, Unknown, RASH, 07/08/18) Patient Home Medication List Home Medication List Reviewed: Yes Citalopram Hydrobromide (Citalopram HBr) 40 Mg Tablet, 40 MG PO DAILY, (Reported) Entered as Reported by: EKTA CINTRON on 07/08/18 1201 Clonazepam (Klonopin) 2 Mg Tablet, 2 MG PO Q12H, (Reported) Entered as Reported by: EKTA CINTRON on 07/08/18 1201 Cyclobenzaprine HCl (Cyclobenzaprine HCl) 10 Mg Tablet, 10 MG PO HS PRN for MUSCLE SPASMS, (Reported) Entered as Reported by: EKTA CINTRON on 07/08/18 1201 Docusate Sodium (Docusate Sodium) 100 Mg Capsule, 100 MG PO BID Prescribed by: CHASITY MILLER on 07/12/18 1241 Ibuprofen (Ibuprofen) 800 Mg Tablet, 800 MG PO Q6HR Prescribed by: CHASITY MILLER on 07/12/18 1241 Lutein (Lutein) 6 Mg Tablet, 6 MG PO DAILY, (Reported) Entered as Reported by: EKTA CINTRON on 07/08/18 1201 Metoprolol Tartrate (Metoprolol Tartrate) 25 Mg Tablet, 25 MG PO BID, (Reported) Entered as Reported by: EKTA CINTRON on 07/08/18 1036 Oxycodone HCl/Acetaminophen (Percocet 5-325 mg Tablet) 1 Each Tablet, 1 TAB PO Q4H PRN for PAIN-MODERATE Prescribed by: CHASITY MILLER on 07/12/18 1241 Solifenacin Succinate (Vesicare) 5 Mg Tablet, 5 MG PO DAILY, (Reported) Entered as Reported by: EKTA CINTRON on 07/08/18 1201 Topiramate (Topiramate) 50 Mg Tablet, 50 MG PO BID, (Reported) Entered as Reported by: EKTA CINTRON on 07/08/18 1201 Topiramate (Topiramate) 100 Mg Tablet, 100 MG PO BID, (Reported) Entered as Reported by: EKTA CINTRON on 07/08/18 120 Trazodone HCl (Trazodone HCl) 50 Mg Tablet, 50 MG PO HS, (Reported) Entered as Reported by: EKTA CINTRON on 07/08/18 1201 Review of Systems Review of Systems Constitutional: see HPI; No chills, No fever EENTM: see HPI Respiratory: no symptoms reported Cardiovascular: no symptoms reported Genitourinary: no symptoms reported Musculoskeletal: no symptoms reported Skin: see HPI Psychiatric/Neurological: No Symptoms Reported Endocrine: No Symptoms Reported Past Zoskkhb-Tldpoj-Mgoipz Hx Seasonal Allergies Seasonal Allergies: Yes Past Medical History Surgeries: Yes Respiratory: No Cardiac: Yes (MVP) Neurological: No Genitourinary: Yes (bladder leakage) Gastrointestinal: No Musculoskeletal: No Endocrine: No HEENT: Yes (left eye has increased pressure) Cancer: No Psychosocial: Yes Anxiety, Depression Integumentary: No Blood Disorders: No Family Medical History Diabetes mellitus 19 FATHER Physical Exam Vital Signs Vital Signs - First Documented 11/03/21 14:43 Temp 36.6 Pulse 92 Resp 22 B/P (MAP) 119/74 (89) Pulse Ox 97 O2 Delivery Room Air Capillary Refill : General Appearance: WD/WN, no apparent distress HEENT: PERRL/EOMI, normal ENT inspection Neck: non-tender, full range of motion Respiratory: no respiratory distress, no accessory muscle use Extremities: normal range of motion, non-tender Neurologic/Psychiatric: alert, normal mood/affect, oriented x 3 Skin: normal color, warm/dry Skin Problem Character: abscess, other (Quarter sized fluctuant abscess to the right inguinal fold. There is edema and erythema of the right side of the labia but no fluctuance to it.) Procedures/Interventions I&D : Blade Size: 11 Progress Given 75 mcg of intramuscular fentanyl prior to incision and drainage. This was anesthetized with 2 mL of buffered 1% lidocaine without epinephrine. Incision made with an 11 blade scalpel. Large amount of foul-smelling purulent material expressed. Cavity irrigated with saline. Covered with gauze. Progress/Results/Core Measures Results/Orders My Orders Orders - SPRING KNIGHT APRN Wound Culture (11/03/21 14:49) Lidocaine 1% Inj 20 Ml (Xylocaine 1% Inj (11/03/21 15:00) Sodium Bicarbonate 8.4% Syr (Sodium Bica (11/03/21 15:00) Fentanyl Inj (Sublimaze Injection) (11/03/21 15:00) Medications Given in ED Current Medications Medications Dose Ordered Sig/Phu Route Start Time Stop Time Status Last Admin Dose Admin Fentanyl Citrate 75 mcg ONCE ONCE IM 11/03/21 15:00 11/03/21 15:01 DC 11/03/21 15:11 75 MCG Vital Signs/I&O 11/03/21 14:43 Temp 36.6 Pulse 92 Resp 22 B/P (MAP) 119/74 (89) Pulse Ox 97 O2 Delivery Room Air Departure Impression Primary Impression: Abscess Disposition: 01 HOME, SELF-CARE Condition: Stable Departure-Patient Inst. Decision time for Depature: 15:09 Referrals: Carrillo OSWALD MD (PCP/Family) Primary Care Physician Patient Instructions: Abscess Incision and Drainage ED Add. Discharge Instructions: 1. Warm compresses to the area, continue with Epsom salt soaks. Return to ER for any increasing redness or fevers. Follow-up with your doctor next week. You can stop the cephalexin. Continue the Valtrex. Take the hydrocodone for pain as needed and take the doxycycline for the infection. Scripts Doxycycline Hyclate (Doxycycline Hyclate) 100 Mg Tablet 100 MG PO BID, #14 TAB Prov: SPRING KNIGHT APRN 11/03/21 Hydrocodone/Acetaminophen (Hydrocodone-Acetamin 5-325 mg) 1 Each Tablet 1 TAB PO Q4H PRN for PAIN-MODERATE (5-7), #10 TAB Prov: SPRING KNIGHT APRN 11/03/21 Work/School Note: Work Release Form Date Seen in the Emergency Department: Nov 03, 2021 Return to Work: Nov 06, 2021 SPRING KNIGHT APRN Nov 03, 2021 14:52
[2021-11-03] MEDS ORDERED: fentaNYL INJ 100 MCG/2 ML AMP IM ONE (15:00)
[2021-11-03] MEDS ORDERED: SODIUM BICARB 8.4% 50 MEQ/50 ML (ABBOTT) SYR IV ONE (15:00)
[2021-11-03] MEDS ORDERED: LIDOCAINE 1% INJ 20 ML VIAL INJ ONE (15:00)
[2021-11-03] MEDS ORDERED: DOXY100T2 PO (15:34)
[2021-11-03] MEDS ORDERED: ACHD5005 PO (15:34)
[2021-11-03 15:42] VITALS: BP 110/69
[2021-11-03] MEDS ORDERED: FLUC150T PO (15:42)
== END 2021-11-03 15:42 | disposition home or self-care (01) ==
LOC: EDUNIT# 14:31 → ER 14:36
DX: L02.214 Cutaneous abscess of groin (principal); F41.9 Anxiety disorder, unspecified; F32.9 Major depressive disorder, single episode, unspecified; Z79.899 Other long term (current) drug therapy
CPT/HCPCS: 10060; 87070; 87077; 87205